=== PATIENT | female | born 1985 | race American Indian/Alaskan Native ===

== ENCOUNTER 2017-09-27 23:21 | Emergency (ER) | payer OTHER ==
[2017-09-28 00:35] VITALS: BP 109/69
[2017-09-28] MEDS ORDERED: REGLAN PO ONE (01:57)
[2017-09-28] MEDS ORDERED: MOTRIN PO ONE (01:57)
[2017-09-28] MEDS ORDERED: BENADRYL PO ONE (01:57)
[2017-09-28] MEDS ORDERED: DECADRON IM ONE (01:59)
--- NOTE | 2017-09-28 02:43 | Emergency Department Report ---
ED Headache HPI - General Chief Complaint: Headache Stated Complaint: HEADACHE/KNOTS Time Seen by Provider: 09/28/17 01:25 - History of Present Illness Initial Comments: 31-year-old -[place] Patient presents for left-sided posterior headache for within intermittent for the last 3 days no fever no chills no facial pain and sinus pain no photophobia and no nausea vomiting headache feels like pressure headaches relieved by rest with NSAIDs exacerbated by movement and activity patient has had similar headaches . There is no vision or hearing loss Timing/Duration: 1 week Quality: moderate, achy Head Injury Location: occipital Recent Head Trauma: no recent headache/trauma Modifying Factors: improves with: cold therapy, other Associated Symptoms: fever/chills, numbness in legs/feet. denies: confusion, fatigue, facial pain, flushing, loss of consciousness, nausea/vomiting, nasal congestion, nasal drainage, seizures, sinus infection, stiff neck, vision changes, weakness Allergies/Adverse Reactions: Allergies No Known Allergies Allergy (Unverified 09/28/17 00:25) Home Medications: Ambulatory Orders Acetaminophen [Tylenol Extra Strength] 1,000 mg PO QID PRN #60 tablet 09/28/17 Metoclopramide [Reglan] 10 mg PO TID PRN #30 tab 09/28/17 diphenhydrAMINE [Benadryl CAP] 25 mg PO Q8HR PRN #30 capsule 09/28/17 ED Review of Systems ROS: Stated complaint: HEADACHE/KNOTS Other details as noted in HPI ED Past Medical Hx - Past Medical History Previous Medical History?: No - Surgical History Past Surgical History?: No - Social History Smoking Status: Never Smoker - Medications Home Medications: Home Medications Medication Instructions Recorded Confirmed Last Taken Type Acetaminophen [Tylenol Extra 1,000 mg PO QID PRN #60 tablet 09/28/17 Unknown Rx Strength] Metoclopramide [Reglan] 10 mg PO TID PRN #30 tab 09/28/17 Unknown Rx diphenhydrAMINE [Benadryl CAP] 25 mg PO Q8HR PRN #30 capsule 09/28/17 Unknown Rx ED Physical Exam - General Limitations: No Limitations General appearance: alert, in no apparent distress - Head Head exam: Present: atraumatic, normocephalic. Absent: normal inspection - Eye Eye exam: Present: normal appearance Pupils: Present: normal accommodation - ENT ENT exam: Present: normal orophraynx, mucous membranes moist, TM's normal bilaterally - Expanded ENT Exam Expanded TM/Canal exam: Cerumen Impaction: Right TM, Left TM Mouth exam: Present: normal external inspection Teeth exam: Present: normal inspection Throat exam: Positive: normal inspection - Neck Neck exam: Present: normal inspection, full ROM. Absent: tenderness, lymphadenopathy, thyromegaly - Respiratory Respiratory exam: Present: normal lung sounds bilaterally. Absent: respiratory distress, wheezes, stridor, chest wall tenderness - Cardiovascular Cardiovascular Exam: Present: regular rate, normal rhythm. Absent: systolic murmur, diastolic murmur, rubs, gallop - GI/Abdominal GI/Abdominal exam: Present: soft, normal bowel sounds. Absent: guarding, rebound, organomegaly, mass, bruit, pulsatile mass, hernia - Rectal Rectal exam: Present: deferred - Extremities Exam Extremities exam: Present: normal inspection, full ROM, normal capillary refill. Absent: tenderness, pedal edema, joint swelling, calf tenderness - Back Exam Back exam: Present: normal inspection, full ROM. Absent: tenderness - Neurological Exam Neurological exam: Present: alert, oriented X3, CN II-XII intact, normal gait, reflexes normal - Psychiatric Psychiatric exam: Present: normal affect, normal mood - Skin Skin exam: Present: warm, dry, intact, normal color, other (scalp cyst nonfluctuant no erythema no drainage no fever less than 1 cm ). Absent: rash ED Course Vital Signs 09/28/17 00:27 Temperature 98.7 F Pulse Rate 81 Respiratory 14 Rate Blood Pressure 109/69 O2 Sat by Pulse 100 Oximetry ED Medical Decision Making - Medical Decision Making Headache improved without medications prescribed for ED headache now 02/25 received other medications only ibuprofen patient will follow up with PCP N2 to 3 days will DC with prescription for Reglan and Benadryl Tylenol patient will follow up with [facility] clinic in 2-3 days patient verbalizes understanding and agreement was signed will be DC'd to home in stable condition at this time Critical care attestation.: If time is entered above; I have spent that time in minutes in the direct care of this critically ill patient, excluding procedure time. ED Disposition Clinical Impression: Cyst, dermoid, scalp and neck Headache Qualifiers: Headache type: tension-type Headache chronicity pattern: acute headache Intractability: not intractable Qualified Code(s): G44.209 - Tension-type headache, unspecified, not intractable Disposition: DC-01 TO HOME OR SELFCARE Is pt being admited?: No Does the pt Need Aspirin: No Condition: Good Instructions: Tension Headache (ED) Prescriptions: Acetaminophen [Tylenol Extra Strength] 1,000 mg PO QID PRN #60 tablet PRN Reason: Headache diphenhydrAMINE [Benadryl CAP] 25 mg PO Q8HR PRN #30 capsule PRN Reason: Headache Metoclopramide [Reglan] 10 mg PO TID PRN #30 tab PRN Reason: Headache Referrals: PRIMARY CARE, [Primary Care Provider] - 3-5 Days
== END 2017-09-28 03:05 | disposition home or self-care (01) ==
LOC: ED 23:21
DX: G44.209 Tension-type headache, unspecified, not intractable (principal); D23.4 Other benign neoplasm of skin of scalp and neck
CPT/HCPCS: 99282